=== PATIENT | female | born 1950 | race Caucasian/White ===

== ENCOUNTER 2020-11-10 15:05 | Emergency (ER) | payer MEDICARE, OTHER, BC ==
[2020-11-10] MEDS ORDERED: Lidocaine 1% 20 ML MDV INJECT ONE (15:38)
[2020-11-10] MEDS ORDERED: Lidocaine 1% 30 ML SDV ONE (15:43)
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
[2020-11-10] MEDS ORDERED: Diphtheria,Pertussis(Acell),Tetanus Vaccine 0.5 ML Syringe IM ONE (17:08)
--- NOTE | 2020-11-11 09:07 | CR ---
Right hand: 4 views of the right hand were obtained. Two small radiopacities are seen within the volar soft tissues presumably due to foreign bodies. Prominent degenerative change is noted within the DIP and PIP joints. Diffuse joint space narrowing is seen within the MCP joints. Prominent degenerative change is seen within the CMC joint of the thumb. Severe joint space narrowing is noted off the distal navicular bone. Impression: 1. Diffuse degenerative change as noted above. 2. Two small foreign bodies projected volarly within the hand. 3. Nothing acute is otherwise seen. Diagnostic code #3
== END 2020-11-10 17:30 | disposition home or self-care (01) ==
LOC: JD.ED 15:05
DX: S61.411A Laceration without foreign body of right hand, initial encounter (principal); M31.30 Wegener's granulomatosis without renal involvement; Z23 Encounter for immunization; Z91.040 Latex allergy status; Z79.899 Other long term (current) drug therapy; V89.9XXA Person injured in unspecified vehicle accident, initial encounter
CPT/HCPCS: 12004; 73130-26-RT; 73130-RT; 90471; 90715; 99282; 99283-25